=== PATIENT | female | born 1990 | race African-American/Black ===

== ENCOUNTER 2017-08-14 14:40 | Day surgery (SDC) | payer OTHER ==
[2017-08-14 15:35] VITALS: BMI 37.8
--- NOTE | 2017-08-14 15:35 | PDOC.LDHP ---
Labor and Delivery H&P Chief complaint: other HPI: 26 yo @ 29 WGA by LMP presents for weakness. She states that every week for the past month she has been feeling weak after she gets up on her feet. She states it doesn't immediately happen after she rises to her feet, but does happen within 10-15 min. 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 She denies recent illness. She also denies vision changes, blacking out, or fainting episodes at this time. She denies any n/v/d, fevers, chills, or coughs. She states that she doesn't have much of an appetite and these feelings are also associated with headaches. She states she has come to the hospital several times for this and they can never find anything wrong with her. No other complaints today. Current gestational age (weeks): 28 Due date: 11/06/17 Dating criteria: last menstrual period Grav: 2 Para: 1 OB History Details: Eclampsia with seizure with previous Current complications: none Abnormal US findings: No Past Medical History: None Current medications: pre- vitamins, iron Previous surgical history: low tranverse CS Allergies/Adverse Reactions: Allergies Allergy/AdvReac Type Severity Reaction Status Date / Time No Known Allergies Allergy Verified 08/14/17 15:29 Social history: tobacco use (2 cigarettes a week) - Physical Exam Vital signs reviewed and normal: yes General: NAD, resting Heart: RRR Lungs: nonlabored breathing Abdomen: NTTP Extremeties: no edema FHT: category 1 - Assessment 1. 2nd trimester - Likely symptoms related to - Encourage PO intake 2. Malaise - Will check CBC for anemia - Will check orthostatics Disposition: Stable, Will observe in L&D - Plan Plan: observation in L&D
[2017-08-14 16:59] LABS: #Eosinphils 0.1 thou/uL (0.0-0.7); #Lymphocytes 1.7 thou/uL (1.20-3.40); #Monocytes 0.7 thou/uL (0.11-0.59); #Neutrophils 8.1 thou/uL (1.40-6.50); %Basophils 0.3 % (0.0-1.0); %Eosinophils 0.7 % (0.0-10.0); %Monocytes 6.7 % (0.0-10.0); %Neutrophils 76.3 % (42.0-75.0); Anisocytosis SLIGHT = 6-15 cells (100X) (0-5/hpf); Hemoglobin 10.1 g/dL (12.0-16.0); Hypochromia SLIGHT = 6-15 cells (100X) (0-5/hpf); MDiff Complete? YES; Mean Corpuscular HGB CONC 31.4 g/dL (32.0-36.0); Mean Corpuscular Hemoglobin 22.3 pg (27.0-31.0); Mean Platelet Volume 10.5 fL (7.4-10.4); Microcytosis SLIGHT = 6-15 cells (100X) (0-5/hpf); PLT Morphology Comment Appears Adequate; Platelet Count 246 thou/uL (130-400); Polychromasia SLIGHT = 2-3 cells (100X) (0-2/hpf); RBC Distribution Width 15.8 % (11.5-14.5); Red Blood Cell (RBC) Count 4.51 mill/uL (4.20-5.40); White Blood Cell (WBC) Count 10.6 thou/uL (4.8-10.8)
[2017-08-14 17:24] LABS: Creatinine, Urine 111.88 mg/dL (47-110); Protein, Urine Random Quant Less than 10 mg/dL
== END 2017-08-14 17:35 | disposition home or self-care (01) ==
LOC: L&D/OP 14:40
PROVIDERS: ATTEND Family Medicine
DX: O99.89 Other specified diseases and conditions complicating pregnancy, childbirth and the puerperium (principal); R53.81 Other malaise; Z79.899 Other long term (current) drug therapy; Z3A.28 28 weeks gestation of pregnancy; Z98.891 History of uterine scar from previous surgery; Z87.59 Personal history of other complications of pregnancy, childbirth and the puerperium
CPT/HCPCS: 36415; 82570; 84156; 85025